=== PATIENT | female | born 1985 | race American Indian/Alaskan Native ===

== ENCOUNTER 2017-05-10 11:03 | Emergency (ER) | payer OTHER ==
[2017-05-10 11:07] VITALS: BMI 26.4
[2017-05-10 11:12] VITALS: RESP 18; TEMP 98.4
--- NOTE | 2017-05-10 12:19 | RAD ---
PROCEDURE: Radiographs of the Chest and Left Ribs. HISTORY: r/o fx (left posterior rib pain) COMPARISON: None available. TECHNIQUE: Frontal radiograph of the chest and multiple oblique radiographs of the left ribs were obtained. FINDINGS: LEFT RIBS: No fracture or focal lesion visualized. LUNGS: Clear. PLEURA: No pneumothorax or pleural fluid. CARDIOVASCULAR: Normal sized heart. No pulmonary vascular congestion. OTHER FINDINGS: None. IMPRESSION: Unremarkable radiographs of the chest and left ribs. No left rib fracture.
[2017-05-10 13:10] VITALS: BP 124/75; PULSE 75; O2SAT 98
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
== END 2017-05-10 13:11 | disposition home or self-care (01) ==
LOC: SUPCPDRO 11:03 → C.ER 11:03
DX: M54.5 Low back pain (principal); V43.52XA Car driver injured in collision with other type car in traffic accident, initial encounter; Y92.410 Unspecified street and highway as the place of occurrence of the external cause